=== PATIENT | female | born 1995 | race African-American/Black ===

== ENCOUNTER 2017-08-02 14:34 | Emergency (ER) | payer OTHER ==
[~2017-08-02] VITALS: Ht 165.1 cm; Wt 64.0 kg
[2017-08-02 14:37] VITALS: BP 126/63
== END 2017-08-02 16:26 | disposition left against medical advice (07) ==
LOC: ER 14:48
DX: R07.89 Other chest pain (principal); J45.909 Unspecified asthma, uncomplicated; Z88.2 Allergy status to sulfonamides
CPT/HCPCS: 93005; 99283